=== PATIENT | male | born 1990 | race American Indian/Alaskan Native ===

== ENCOUNTER 2017-01-17 11:20 | Emergency (ER) | payer SELFPAY ==
[2017-01-17 11:28] VITALS: BP 139/78
--- NOTE | 2017-01-17 13:14 | Emergency Department Report ---
ED General Adult HPI - General Chief complaint: Skin/Abscess/Foreign Body Stated complaint: GROWTH ON CHIN W/PAIN Time Seen by Provider: 01/17/17 12:50 Source: patient Mode of arrival: Ambulatory Limitations: No Limitations - History of Present Illness Initial comments: This is a 26-year-old male well-nourished with nontoxic or ill in appearance that complains of a skin tag to the chin for the past couple of months. Patient denies any pus, drainage, chest pain, shortness of breath, numbness or tingling to extremities. Patient denies any fever or chills. Patient stated he has noticed this couple months that was small in size and has been growing. Patient denies any pain to the area. Patient denies any drug allergies. MD Complaint: skin tag -: Gradual, month(s) Location: face Radiation: non-radiation Severity scale (0 -10): 0 Associated Symptoms: denies other symptoms. denies: confusion, chest pain, cough, diaphoresis, fever/chills, headaches, loss of appetite, malaise, nausea/ vomiting, rash, seizure, shortness of breath, syncope, weakness Treatments Prior to Arrival: none - Related Data Allergies Allergy/AdvReac Type Severity Reaction Status Date / Time No Known Allergies Allergy Unverified 01/17/17 11:28 ED Review of Systems ROS: Stated complaint: GROWTH ON CHIN W/PAIN Other details as noted in HPI Constitutional: denies: chills, fever Eyes: denies: eye pain, eye discharge, vision change ENT: denies: ear pain, throat pain Respiratory: denies: cough, shortness of breath, wheezing Cardiovascular: denies: chest pain, palpitations Endocrine: no symptoms reported Gastrointestinal: denies: abdominal pain, nausea, diarrhea Genitourinary: denies: urgency, dysuria Musculoskeletal: denies: back pain, joint swelling, arthralgia Skin: denies: rash, lesions Neurological: denies: headache, weakness, paresthesias Psychiatric: denies: anxiety, depression Hematological/Lymphatic: denies: easy bleeding, easy bruising ED Past Medical Hx - Past Medical History Previous Medical History?: No - Surgical History Past Surgical History?: No - Social History Smoking Status: Never Smoker Substance Use Type: None ED Physical Exam - General Limitations: No Limitations General appearance: alert, in no apparent distress - Head Head exam: Present: atraumatic, normocephalic - Eye Eye exam: Present: normal appearance - ENT ENT exam: Present: mucous membranes moist - Neck Neck exam: Present: normal inspection - Respiratory Respiratory exam: Present: normal lung sounds bilaterally. Absent: respiratory distress - Cardiovascular Cardiovascular Exam: Present: regular rate, normal rhythm. Absent: systolic murmur, diastolic murmur, rubs, gallop - GI/Abdominal GI/Abdominal exam: Present: soft, normal bowel sounds - Rectal Rectal exam: Present: deferred - Extremities Exam Extremities exam: Present: normal inspection - Back Exam Back exam: Present: normal inspection - Neurological Exam Neurological exam: Present: alert, oriented X3 - Psychiatric Psychiatric exam: Present: normal affect, normal mood - Skin Skin exam: Present: warm, dry, intact, normal color, other (1 cm skin tag to the chin area. No signs of bleeding, tenderness, swelling or pus.). Absent: rash, cyanosis, diaphoretic, erythema, urticaria, vesicles, petechiae, pallor, abrasion, ecchymosis ED Course Vital Signs 01/17/17 11:24 Temperature 98.3 F Pulse Rate 84 Respiratory 18 Rate Blood Pressure 139/78 O2 Sat by Pulse 99 Oximetry ED Medical Decision Making - Medical Decision Making ED course: This is a 26-year-old that the presence was contacted [facility]. 1- after my physical exam, I instructed the patient to follow up with his primary care doctor or reimbursement manager for the removal of skin tag as well as possibly a biopsy. 2- at time time of discharge, the patient does not seem toxic or ill in appearance. No acute signs of distress noted. Patient agrees to discharge treatment plan of care. No further questions noted by the patient. Critical care attestation.: If time is entered above; I have spent that time in minutes in the direct care of this critically ill patient, excluding procedure time. ED Disposition Clinical Impression: Skin tag Disposition: DISCHARGED TO HOME OR SELFCARE Is pt being admited?: No Does the pt Need Aspirin: No Condition: Stable Additional Instructions: Follow-up with her primary care doctor/reimbursement manager in 3-5 days for possibility of a biopsy. Referrals: PRIMARY CARE, [Primary Care Provider] - 3-5 Days FIGUEROA DE PAZ MD [Staff Physician] - 3-5 Days KALE SILVA MD [Staff Physician] - 3-5 Days [facility] [Outside] - 3-5 Days [facility] [Outside] - 3-5 Days LEANDRO MAY MD [Staff Physician] - 3-5 Days Forms: Work/School Release Form(ED)
== END 2017-01-17 13:26 | disposition home or self-care (01) ==
LOC: ED 11:20
DX: L91.8 Other hypertrophic disorders of the skin (principal)
CPT/HCPCS: 99281

== ENCOUNTER 2021-05-30 20:53 | Emergency (ER) | payer SELFPAY ==
--- NOTE | 2021-05-30 21:25 | Emergency Department Report ---
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 Ports no fever, chills, sweats. No odynophagia or dysphagia no trauma no trauma reports no presyncope no neck pain no chest pain no back pain MD complaint: ear pain -: Gradual Quality: aching, dull Consistency: constant Improves with: none Worsens with: position Context- Dental: history of dental caries Associated Symptoms: discharge from ear. denies: pain with swallowing, sore throat - Related Data Previous Rx's Medication Instructions Recorded Last Taken Type Ciprofloxacin HCl 500 mg PO BID #20 tablet 05/30/21 Unknown Rx Neomy/Polymyx B/Hc (Otic) Soln 4 drops AD TID #1 bottle 05/30/21 Unknown Rx [Cortisporin (Otic) Soln] traMADoL [Ultram] 50 mg PO Q4HR PRN #14 tablet 05/30/21 Unknown Rx Allergies Allergy/AdvReac Type Severity Reaction Status Date / Time No Known Allergies Allergy Unverified 01/17/17 11:28 ED Dental HPI - General Chief complaint: Earache Stated complaint: RT EARACHE Time Seen by Provider: 05/30/21 21:19 Source: patient Mode of arrival: Ambulatory Limitations: No Limitations - Related Data Previous Rx's Medication Instructions Recorded Last Taken Type Ciprofloxacin HCl 500 mg PO BID #20 tablet 05/30/21 Unknown Rx Neomy/Polymyx B/Hc (Otic) Soln 4 drops AD TID #1 bottle 05/30/21 Unknown Rx [Cortisporin (Otic) Soln] traMADoL [Ultram] 50 mg PO Q4HR PRN #14 tablet 05/30/21 Unknown Rx Allergies Allergy/AdvReac Type Severity Reaction Status Date / Time No Known Allergies Allergy Unverified 01/17/17 11:28 ED Review of Systems ROS: Stated complaint: RT EARACHE Other details as noted in HPI Comment: All other systems reviewed and negative ED Past Medical Hx - Past Medical History Previous Medical History?: No - Surgical History Past Surgical History?: No - Social History Smoking Status: Never Smoker Substance Use Type: None - Medications Home Medications: Home Medications Medication Instructions Recorded Confirmed Last Taken Type Ciprofloxacin HCl 500 mg PO BID #20 tablet 05/30/21 Unknown Rx Neomy/Polymyx B/Hc (Otic) Soln 4 drops AD TID #1 bottle 05/30/21 Unknown Rx [Cortisporin (Otic) Soln] traMADoL [Ultram] 50 mg PO Q4HR PRN #14 tablet 05/30/21 Unknown Rx ED Physical Exam - General Limitations: No Limitations General appearance: alert, in no apparent distress - Head Head exam: Present: atraumatic, normocephalic - Eye Eye exam: Present: normal appearance - ENT ENT exam: Present: mucous membranes moist, TM's normal bilaterally, other (There is tragal tenderness to the right with a swelling to the ear canal and discharge this is noticeable. No mastoid tenderness is no is noted. No odynophagia. The pharynx is patent airway clear no evidence of any peritonsillar abscess is noted.) - Neck Neck exam: Present: normal inspection - Respiratory Respiratory exam: Present: normal lung sounds bilaterally. Absent: respiratory distress - Cardiovascular Cardiovascular Exam: Present: regular rate, normal rhythm. Absent: systolic murmur, diastolic murmur, rubs, gallop - GI/Abdominal GI/Abdominal exam: Present: soft, normal bowel sounds - Rectal Rectal exam: Present: deferred - Extremities Exam Extremities exam: Present: normal inspection, normal capillary refill - Back Exam Back exam: Present: normal inspection. Absent: CVA tenderness (R), CVA tenderness (L) - Neurological Exam Neurological exam: Present: alert, oriented X3, CN II-XII intact, normal gait - Psychiatric Psychiatric exam: Present: normal affect, normal mood - Skin Skin exam: Present: warm, dry, intact, normal color. Absent: rash Critical care attestation.: If time is entered above; I have spent that time in minutes in the direct care of this critically ill patient, excluding procedure time. ED Disposition Clinical Impression: Otitis externa Disposition: HOME / SELF CARE / HOMELESS Is pt being admited?: No Does the pt Need Aspirin: No Condition: Stable Instructions: Otitis Externa Prescriptions: Ciprofloxacin HCl 500 mg PO BID #20 tablet Neomy/Polymyx B/Hc (Otic) Soln [Cortisporin (Otic) Soln] 4 drops AD TID #1 bottle traMADoL [Ultram] 50 mg PO Q4HR PRN #14 tablet PRN Reason: Pain Referrals: [facility] [Provider Group] - 3-5 Days
[2021-05-30 21:50] VITALS: BP 168/104
== END 2021-05-30 21:50 | disposition home or self-care (01) ==
LOC: ED 20:53
DX: H60.91 Unspecified otitis externa, right ear (principal); Z79.899 Other long term (current) drug therapy
CPT/HCPCS: 99282